=== PATIENT | female | born 1940 | race Caucasian/White ===

== ENCOUNTER 2017-03-10 13:05 | Outpatient (CLI) ==
[2017-03-10 14:37] VITALS: BP 132/77; TEMP 96.8
[2017-03-10] MEDS ORDERED: PROLIA SUBCUT STA (14:41)
--- NOTE | 2017-03-10 14:50 | DEXA ---
EXAM: Bone Densitometry DEXA HISTORY: Osteoporosis COMPARISON: 11/28/2014 FINDINGS: DEXA scan of the lumbar spine was performed. Quality of the study is good. Bone mineral density is 1.109 grams per square centimeter. T-score is negative 0.6. Z-score is 1.1. T score L3 vertebral b jan is negative 1.5 DEXA scan right and left hip was performed. Quality of the study is good. Bone mineral density keven n total is 0.882 grams per square centimeter. T-score is negative 1.0. Z-score is 0.7. Bone minera l density of the femoral neck is 0.796 with a T score of negative 1.7 and a Z score of 0.1. IMPRESSION: 1. Lumbar spine: Normal bone marrow density. L3 vertebral body demonstrates osteopenia 2. Right and left hip: Borderline osteopenia 3. Right and left femoral neck: Osteopenia 4. 10 year risk for major osteoporotic fracture is 21.4% and for hip fracture is 11.8%. Reference Values according to World Health Organization criteria: T score greater than -1 is normal T score -1 to -2.5 is osteopenia T score less than -2.5 is osteoporosis.
--- NOTE | 2017-03-11 11:39 | MAMMO ---
EXAM: Bilateral digital screening mammogram History: Screening Comparison: Bilateral mammogram 07/04/2014 Findings: MLO and CC views of bilateral breasts demonstrate scattered fibroglandular breast parench yma. Stable benign bilateral breast calcifications. There are no dominant masses, no suspicious mi crocalcifications and no architectural distortions Impression: Benign stable mammogram. Recommend followup routine screening mammography in 1 year. BIRADS 2
== END 2017-03-10 13:06 | disposition home or self-care (01) ==
LOC: RAD 13:05
PROVIDERS: ATTEND Internal Medicine
DX: Z12.31 Encounter for screening mammogram for malignant neoplasm of breast (principal); M81.0 Age-related osteoporosis without current pathological fracture
CPT/HCPCS: 96372

== ENCOUNTER 2018-01-27 09:45 | Outpatient (CLI) ==
[2018-01-27 10:02] VITALS: BP 109/68; TEMP 97.2
[2018-01-27] MEDS ORDERED: PROLIA SUBCUT STA (10:04)
== END 2018-01-27 09:46 | disposition home or self-care (01) ==
LOC: OPMED 09:45
PROVIDERS: ATTEND Internal Medicine
DX: M81.0 Age-related osteoporosis without current pathological fracture (principal)
CPT/HCPCS: 96372

== ENCOUNTER 2018-03-11 12:33 | Outpatient (CLI) ==
--- NOTE | 2018-03-12 11:05 | MAMMO ---
EXAM: Digital screening mammogram with tomosynthesis HISTORY: Screening COMPARISON: 03/10/2017 FINDINGS: Digital MLO and CC views of the right and left breast were performed. Tomosynthesis was performed. Computer aided detection utilized. There are scattered fibroglandular densities. There a re benign bilateral calcifications. There is no evidence for mass, asymmetry, distortion, or suspicio us calcifications in either breast. IMPRESSION: 1. No evidence of malignancy in the right or left breast. 2. Annual screening mammogram is recommended in one year. BIRADS category 2, benign
== END 2018-03-11 12:34 | disposition home or self-care (01) ==
LOC: RAD 12:33
PROVIDERS: ATTEND Internal Medicine
DX: Z12.31 Encounter for screening mammogram for malignant neoplasm of breast (principal)
CPT/HCPCS: 77067

== ENCOUNTER 2018-08-12 08:50 | Outpatient (CLI) ==
[2018-08-12 09:03] VITALS: BP 127/66; TEMP 98.3
[2018-08-12] MEDS ORDERED: PROLIA SUBCUT STA (09:07)
== END 2018-08-12 08:51 | disposition home or self-care (01) ==
LOC: OPMED 08:50
PROVIDERS: ATTEND Internal Medicine
DX: M81.0 Age-related osteoporosis without current pathological fracture (principal)
CPT/HCPCS: 96372

== ENCOUNTER 2019-01-20 14:27 | Outpatient (CLI) ==
--- NOTE | 2019-01-20 14:48 | DI ---
EXAM: Chest two views HISTORY: Chest pain COMPARISON: None TECHNIQUE: Two views of the chest were performed FINDINGS: The lungs are clear. There is no pleural effusion or pneumothorax. The heart is normal i n size. The mediastinal contour is normal, noting atherosclerosis. Mild age indeterminate compressi on deformity in the lumbar spine with chronic features favored. IMPRESSION: 1. No acute cardiopulmonary process. 2. Mildly age indeterminate compression deformity in the lumbar spine with chronic features favored.
== END 2019-01-20 14:28 | disposition home or self-care (01) ==
LOC: RAD 14:27
PROVIDERS: ATTEND Internal Medicine
DX: R07.9 Chest pain, unspecified (principal); I49.3 Ventricular premature depolarization

== ENCOUNTER 2019-01-24 06:33 | Outpatient (CLI) ==
--- NOTE | 2019-01-26 11:27 | HOLTER ---
PATIENT INFORMATION AND COMMENTS Attending Physician: DR. OJ DVERIES Indications: SHORT OF BREATH __ Patient Medications: LIPITOR, LOSARTAN, XANAX, PROLIA __ Pre-procedure Summary: Protocol: Standard Heart Rate Started: 01/24/19809 Minimum: 61 BPM Weight: 154 LBS Ended: 01/25/19809 Maximum: 127 BPM Height: 62" Duration: 24 HOURS Average: 83 BPM _ INTERPRETATIONS/OBSERVATIONS: 1. BASIC RHYTHM: SINUS, RATE 60 BPM TO 120 BPM, AVERAGE 80 BPM 2. PVC'S --MOST IN THE FORM OF UNIFOCAL VENTRICULAR BIGEMINY, 25% OF BEATS SCANNED 3. NO ST-T WAVE CHANGES FROM BASELINE 4. ACTIVITY LOG--NOT FILLED OUT MTDD
--- NOTE | 2019-01-27 12:55 | ECHO2D ---
Date of Exam: 01/24/19 Ordering Physician: DR. OJ DEVRIES Room #: OP Reason for Echo: SOB, PVC'S, PALPITATIONS M-Mode Normal Adult Results LV Dimensions Normal Adult Results AoV Opening excursions >1.6 >1.6 LVEDD-base- 3.5-5.8 3.7 Ao root dimensions 2.0-3.7 3.3 LVESD-base- 3.1-4.6 L. Atrium dimensions 1.9-3.8 3.6 Post. Wall thickness 0.8-1.1 1.1 IV septum (thickness) 0.7-1.2 1.0 Post. Wall excursion 0.72-1.3 NORMAL Septal motion NORMAL Systolic motion R. Ventricular cavity 1.5-2.0 NORMAL LVEF 60% 68% Paradoxical septal wall motion NORMAL 2-D : 2-D M Mode Echocardiogram was performed using apical four chamber and left parasternal long and short axis views. Mitral, tricuspid and aortic valves appear to be normal. Contractility of the left ventricle seems to be normal, so is the cavity size. Left atrial cavity size and aortic root appear to be normal. There is no pericardial effusion. There is no thrombus noted in the left ventricular or left aortic cavity. No mitral valve prolapse noted. M-MODE: MV: NORMAL AV: NORMAL TV: NORMAL PV: CHAMBER SIZE: NORMAL WALL MOTION: NORMAL PERICARDIUM: NORMAL INTERPRETATION: 1. NORMAL 2 "D" "M" MODE ECHO MTDD
== END 2019-01-24 06:34 | disposition home or self-care (01) ==
LOC: CAR 06:33
PROVIDERS: ATTEND Internal Medicine
DX: R06.02 Shortness of breath (principal); R00.2 Palpitations; I49.3 Ventricular premature depolarization
CPT/HCPCS: 93227

== ENCOUNTER 2019-01-26 06:36 | Outpatient (CLI) ==
--- NOTE | 2019-01-26 11:36 | STRESSECHO ---
Date of Test: 01/26/19 Ordering Physician: DR. OJ DEVRIES Occupation: RETIRED Reason for Exam: SOB, PVC, PALPITATIONS Smoking History: NONE Height: 62" Weight: 154 LBS Current Medications: LIPITOR, LOSARTAN, XANAX, PROLIA Resting EKG: SINUS RHYTHM/ PVC'S/ VENTRICULAR BIGEMINY Target Heart Rate: 121/143 S-T SEGMENT STAGE MPH/GRADE HEART RATE BPM BLOOD PRESSURE MMHG RHYTHM +/- ELEVATION DEPRESSION SYMPTOMS AT REST 73 BPM 154/92 [facility] SR X NONE 1 1.7/10% 110 BPM 170/88 MM[facility] SR X NONE 2 2.5/12% 3 3.4/14% 4 4.2/16% 5 5.0/18% Immediately After 128 BPM SR X FATIGUE Minutes Post Exercise 4:00 72 BPM 150/86 MM[facility] SR X NONE Minutes Post Exercise DURATION OF EXERCISE: 4:00 MAXIMUM HEART RATE REACHED: 125 BPM REASON FOR TERMINATION: FATIGUE 97% OXYGEN SATURATION WITH EXERCISE ON ROOM AIR METS 7.[address]: 1[address] NO [address]-T WAVE CHANGES SUGGESTING OF ISCHEMIA 2. PVC'S--LESS FREQUENT WITH EXERCISE 3. NO CHEST PAIN OR DISCOMFORT 4. BLOOD PRESSURE RESPONSE--HYPERTENSION AT REST AND WITH EXERCISE NORMAL LEFT VENTRICULAR CONTRACTILITY--RESTING AND POST EXERCISE MTDD
--- NOTE | 2019-01-26 11:38 | ECHOSTRESS ---
Date of Exam: 01/26/19 Ordering Physician: DR. OJ DEVRIES Reason for Echo: SOB, PVC'S, PALPITATIONS, STRESS TEST--NO ISCHEMIA M-Mode Normal Adult Results LV Dimensions Normal Adult Results AoV Opening excursions >1.6 LVEDD-base- 3.5-5.8 Ao root dimensions 2.0-3.7 LVESD-base- 3.1-4.6 L. Atrium dimensions 1.9-3.8 Post. Wall thickness 0.8-1.1 IV septum (thickness) 0.7-1.2 Post. Wall excursion 0.72-1.3 Septal motion Systolic motion R. Ventricular cavity 1.5-2.0 LVEF 60% Paradoxical septal wall motion 2-D: NORMAL LEFT VENTRICULAR CONTRACTILITY--RESTING AND POST EXERCISE M-MODE: MV: AV: TV: PV: CHAMBER SIZE: WALL MOTION: NORMAL LEFT VENTRICULAR CONTRACTILITY--RESTING AND POST EXERCISE PERICARDIUM: INTERPRETATION: 1. NORMAL LEFT VENTRICULAR CONTRACTILITY--RESTING AND POST EXERCISE MTDD
== END 2019-01-26 06:37 | disposition home or self-care (01) ==
LOC: CAR 06:36
PROVIDERS: ATTEND Internal Medicine
DX: R06.02 Shortness of breath (principal); R00.2 Palpitations; I49.3 Ventricular premature depolarization

== ENCOUNTER 2019-02-17 09:16 | Outpatient (CLI) ==
[2019-02-17 09:31] VITALS: BP 143/80; TEMP 97.3
[2019-02-17] MEDS: PROLIA SUBCUT STA (09:45)
== END 2019-02-17 09:17 | disposition home or self-care (01) ==
LOC: OPMED 09:16
PROVIDERS: ATTEND Internal Medicine
DX: M81.0 Age-related osteoporosis without current pathological fracture (principal)
CPT/HCPCS: 96372

== ENCOUNTER 2019-03-14 09:59 | Outpatient (CLI) ==
--- NOTE | 2019-03-14 10:38 | MAMMO ---
EXAM: Bilateral digital screening mammogram (2-D and 3-D) History: Screening Comparison: Bilateral mammogram 03/11/2018 Findings: MLO and CC views of bilateral breasts demonstrate scattered fibroglandular breast parenchy ma. There are no dominant masses, no suspicious microcalcifications and no architectural distortions . Stable benign bilateral breast calcifications Impression: Benign stable mammogram. Recommend followup routine screening mammography in 1 year. BI-RADS 2, benign
== END 2019-03-14 10:00 | disposition home or self-care (01) ==
LOC: RAD 09:59
PROVIDERS: ATTEND Internal Medicine
DX: Z12.31 Encounter for screening mammogram for malignant neoplasm of breast (principal)